=== PATIENT | male | born 2005 | race Two or more races ===

== ENCOUNTER 2025-01-14 14:51 | Emergency (ER) | payer OTHER ==
[~2025-01-14] VITALS: Ht 170.2 cm; Wt 61.2 kg
[2025-01-14] MEDS ORDERED: ONDANSETRON HCL 2 MG/ML VIAL IV STA (15:52)
[2025-01-14] MEDS ORDERED: FAMOtidine 10 MG/ML (4ML VIAL) IV STA (15:53)
[2025-01-14] MEDS ORDERED: DEXTROSE 5 %-0.45 % SOD CHLORD 1,000 ML IV SCH (16:00)
== END 2025-01-14 20:03 | disposition home or self-care (01) ==
LOC: ER 14:54 → EMR PED 14:54
DX: F10.929 Alcohol use, unspecified with intoxication, unspecified (principal)